=== PATIENT | male | born 1965 | race Caucasian/White ===

== ENCOUNTER 2017-07-01 12:33 | Inpatient (IN) | payer MEDICARE ==
[2017-07-01 13:13] LABS: BASOPHILS 0.2 % (0-2); EOSINOPHILS 0.9 % (0-7); HEMATOCRIT 53.6 % (42.0-54.0); HEMOGLOBIN 18.6 g/dL (13.5-17.5); IMMATURE GRANULOCYTES 0.2 % (0-5); LYMPHOCYTES 31.2 % (15-50); MCH 29.2 pg (26.0-34.0); MCHC 34.7 g/dL (31.0-37.0); MCV 84.1 fL (80.0-100.0); MEAN PLATELET VOLUME 8.6 fL (7.4-10.4); MONOCYTES 20.9 % (2-11); NEUTROPHILS 46.6 % (40-80); PLATELET COUNT 289 10x3/uL (130-400); RBC 6.37 10x6/uL (4.20-6.10); RDW 12.1 % (11.5-14.5); WBC 6.6 10x3/uL (4.8-10.8)
[2017-07-01 13:22] LABS: ALBUMIN 4.1 g/dL (3.4-5.0); ALKALINE PHOSPHATASE 115 U/L (46-116); ALT (SGPT) 43 U/L (10-68); BILIRUBIN - TOTAL 1.87 mg/dL (0.2-1.3); CALC OSMOLALITY 275 mosm/kg (275-300); CARBON DIOXIDE 28.2 mmol/L (21.0-32.0); CHLORIDE - SERUM 102 mmol/L (98-107); GLUCOSE 83 mg/dL (74-106); POTASSIUM - SERUM 4.1 mmol/L (3.5-5.1); PROTEIN - SERUM 8.5 g/dL (6.4-8.2); SODIUM 138 mmol/L (136-145); UREA NITROGEN 15 mg/dL (7-18); eGFR NON AFRICAN AMERICAN 84 mL/min (90-120)
[2017-07-01 13:39] LABS: APPEARANCE CLEAR (CLEAR); BILIRUBIN NEGATIVE (NEGATIVE); COLOR YELLOW (YELLOW); GLUCOSE NEGATIVE (NEGATIVE); KETONE NEGATIVE (NEGATIVE); NITRITE NEGATIVE (NEGATIVE); PROTEIN NEGATIVE (NEGATIVE); UROBILINOGEN NORMAL (NORMAL)
[2017-07-01 14:21] LABS: TROPONIN-I 0.027 ng/mL (0.000-0.060)
[2017-07-01] MEDS ORDERED: CLARITIN10 MG/TAB PO (21:10)
[2017-07-01] MEDS ORDERED: BAYER CHEWABLE81 MG PO (21:12)
[2017-07-01] MEDS ORDERED: ZOFRAN ODT4 MG/UDTAB SL (21:14)
--- NOTE | 2017-07-01 23:19 | NUR ---
193)REC'D.FROM ER VIA TO RM 2230.ALERT ORIENTED X3. BRYAN BRISKLY AT 3MM. DENIES BLURED OR DOUBLE VISION. CONTINUES TO C/O SLIGHT HEADACH RT. 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 WHEN ATTEMPTING TO AMBULATE WILL CONTINUE TO MONITOR FOR ANY CHGES AND FOLLOW CURRENT PLAN OF CARE
[2017-07-02] VITALS: BP 131/92
[2017-07-02 02:08] VITALS: BMI 27.0
[2017-07-02 04:00] VITALS: BP 143/87
--- NOTE | 2017-07-02 07:45 | NUR ---
PT AOX4 RESP EVEN AND NONLABORED PT DENIES NEEDS AT THIS TIME IV TO RIGHT FOREARM PATENT AND INTACT AT THIS TIME SRX2 BED AT LOWEST SETTING CALL LIGHT WITHIN REACH WILL CONTINUE TO MONITOR
[2017-07-02 07:58] VITALS: BP 147/82
[2017-07-02] MEDS ORDERED: AMOXICILLIN875 MG PO (08:12)
[2017-07-02 11:48] LABS: HEMATOCRIT 51.7 % (42.0-54.0); HEMOGLOBIN 17.8 g/dL (13.5-17.5); MCHC 34.4 g/dL (31.0-37.0); MCV 84.2 fL (80.0-100.0); MEAN PLATELET VOLUME 8.6 fL (7.4-10.4); PLATELET COUNT 269 10x3/uL (130-400); RBC 6.14 10x6/uL (4.20-6.10); RDW 12.2 % (11.5-14.5); WBC 4.4 10x3/uL (4.8-10.8)
[2017-07-02 12:04] LABS: ALBUMIN 3.6 g/dL (3.4-5.0); ALKALINE PHOSPHATASE 104 U/L (46-116); ALT (SGPT) 43 U/L (10-68); BILIRUBIN - TOTAL 2.51 mg/dL (0.2-1.3); CALC OSMOLALITY 279 mosm/kg (275-300); CALCIUM 9.8 mg/dL (8.5-10.1); CARBON DIOXIDE 29.9 mmol/L (21.0-32.0); CHLORIDE - SERUM 103 mmol/L (98-107); GLUCOSE 113 mg/dL (74-106); POTASSIUM - SERUM 4.4 mmol/L (3.5-5.1); PROTEIN - SERUM 7.8 g/dL (6.4-8.2); SODIUM 139 mmol/L (136-145); UREA NITROGEN 16 mg/dL (7-18); eGFR NON AFRICAN AMERICAN 84 mL/min (90-120)
[2017-07-02 12:09] LABS: LYMPHOCYTES 48 % (15-50); MONOCYTES 11 % (2-11); NEUTROPHILS 41 % (40-80); PLATELET ESTIMATE NORMAL
[2017-07-02 12:24] VITALS: BP 146/90
--- NOTE | 2017-07-02 13:30 | NUR ---
Patient Name: JENNIFER CABRERA Admission Status: ER Accout number: [id number] Admission Date: 07-01-2017 : 1965 Admission Diagnosis:SLURRED SPEECH Attending: LENNY CACERES Current LOS: 1 Anticipated DC Date: 07-04-2017 Planned Disposition: Home Primary Insurance: [employer] Discharge Planning Comments: CM MET WITH PATIENT REGARDING D/C NEEDS AND PLANS. PATIENT STATED HE LIVES WITH HIS DAUGHTER (JEANETTE) AND SHE WILL DRIVE HIM HOME AT DISCHARGE. PATIENT STATED THERE ARE 5 STEPS W/RAILS TO ENTER HOME AND NO STAIRS INSIDE. PATIENTS PCP IS DR. MELENDEZ AND PHARMACY IS [facility] [address]. PATIENT STATED HE IS INDEPENDENT WITH HIS CARE AND HAS NO DME AT HOME. PATIENT STATED HE DOES NOT WANT HOME HEALTH. CM WILL CONTINUE TO FOLLOW PATIENT WITH D/C NEEDS AND PLANS. PCP DR. NORA [facility] [address]- [phone] JEANETTE (DAUGHTER) [phone] Neon Molder: Maral Sandhu Is the patient Alert and Oriented? Yes 0 * How many steps to enter\exit or inside your home? 5 W/RAILS 0 * PCP DR. MELENDEZ 0 * Pharmacy [facility] [address] 0 * Preadmission Environment Home with Family 0 * ADLs Independent 0 * Equipment None 0 * List name and contact numbers for known caregivers / representatives who currently or will assist patient after discharge: JOVITA (DAUGHTER) [phone] 0 * Community resources currently utilized None 0 * Additional services required to return to the preadmission environment? Yes 0 * Can the patient safely return to the preadmission environment? Yes 0 * Has this patient been hospitalized within the prior 30 days at any hospital? No 0 Grand Total: 0
[2017-07-02] MEDS ORDERED: ESGIC TABLET1 TAB PO (14:47)
[2017-07-02] MEDS ORDERED: ASPIRIN325 MG PO (14:47)
[2017-07-02 15:27] VITALS: BP 141/80
--- NOTE | 2017-07-02 16:45 | NUR ---
IV DISCONTINUED WITH CATHETER INTACT AT THIS TIME PT GIVEN TWO PAPER PRESCRIPTIONS WITH DISCHARGE INSTRUCTIONS AT THIS TIME PT TAKEN VIA WHEELCHAIR VIA PRIVATE VEHICLE AT THIS TIME
== END 2017-07-02 16:52 | disposition home or self-care (01) | DRG 312 ==
LOC: D.ER 12:33 → D.MS 18:43
PROVIDERS: Family Medicine; Nurse Practitioner Family; ADMIT Family Medicine Adult Medicine
DX: R55 Syncope and collapse (principal); R47.81 Slurred speech; Z86.73 Personal history of transient ischemic attack (TIA), and cerebral infarction without residual deficits; R51 Headache; R53.1 Weakness; R53.83 Other fatigue

== ENCOUNTER 2020-12-21 07:59 | Emergency (ER) | payer BC ==
[~2020-12-21] VITALS: Ht 182.9 cm; Wt 106.8 kg
[~2020-12-21 07:59] MED LIST: AMOXICILLIN875 MG PO; ASPIRIN325 MG PO; BAYER CHEWABLE81 MG PO; CLARITIN10 MG/TAB PO; ESGIC TABLET1 TAB PO; ZOFRAN ODT4 MG/UDTAB SL
[2020-12-21 08:02] VITALS: Ht 182.9 cm; Wt 106.8 kg
[2020-12-21] MEDS ORDERED: MOBIC7.5 MG PO (08:05)
[2020-12-21] MEDS ORDERED: VITAMIN D325 MC1 PO (08:05)
[2020-12-21] MEDS ORDERED: LEVO-T150 MCG PO (08:05)
[2020-12-21] MEDS ORDERED: LISINOPRIL10 MG PO (08:05)
[2020-12-21] MEDS ORDERED: OMEPRAZOLE20 M1 (08:05)
[2020-12-21] MEDS ORDERED: ZYRTEC10 MG PO (08:06)
[2020-12-21] MEDS ORDERED: CYCLOBENZAPRINE10 MG PO (08:25)
[2020-12-21] MEDS ORDERED: IBUPROFEN800 MG PO (08:25)
[2020-12-21] MEDS ORDERED: ACETAMINOPHEN500 M1 PO (08:25)
[2020-12-21 08:41] VITALS: BP 138/92
== END 2020-12-21 08:42 | disposition home or self-care (01) ==
LOC: D.ER 07:59
DX: M79.672 Pain in left foot (principal); M79.10 Myalgia, unspecified site; M72.2 Plantar fascial fibromatosis; I10 Essential (primary) hypertension; Z86.73 Personal history of transient ischemic attack (TIA), and cerebral infarction without residual deficits